=== PATIENT | female | born 1990 | race Hispanic/Latino ===

== ENCOUNTER 2018-06-05 01:00 | Emergency (ER) | payer BC, MEDICAID ==
[2018-06-05 02:28] LABS: Absolute Lymphocytes (CBC) 3.7 K/uL (0.7-4.9); Absolute Monocytes 0.6 K/uL (0.1-1.3); Absolute Neutrophil 7.1 K/uL (1.8-8.0); Basophils % 0.5 % (0-1.3); Eosinophils % 1.4 % (0-4.4); Lymphocytes % 31.8 % (15.3-44.8); MPV 8.9 fL (7.6-11.3)
[2018-06-05 03:13] LABS: BUN Blood Urea Nitrogen 12 mg/dL (7-18); Bicarbonate 23 mmol/L (21-32); Glucose Level 89 mg/dL (74-106); HCG, Quantitative 127436 mIU/mL (1-3); Potassium 3.7 mmol/L (3.5-5.1); Sodium Level 138 mmol/L (136-145)
--- NOTE | 2018-06-05 03:41 | ER ---
Nurse's Notes [facility] Name: Latisha Taylor Age: 28 yrs Sex: Female : 1990 Arrival Date: 06/05/2018 Time: 01:02 Bed 8 Private MD: Diagnosis: Threathened . 1st trimester ( Twins ) Presentation: 06/05 01:26 Presenting complaint: Patient states: Reports she started bleeding after having sex ea with her . Reports she is 10 weeks with twins and has been cramping all week. Transition of care: patient was not received from another setting of care. Onset of symptoms was June 05, 2018. Risk Assessment: Do you want to hurt yourself or someone else? Patient reports no desire to harm self or others. Initial Sepsis Screen: Does the patient meet any 2 criteria? No. Patient's initial sepsis screen is negative. Does the patient have a suspected source of infection? No. Patient's initial sepsis screen is negative. Care prior to arrival: None. 01:26 Method Of Arrival: Ambulatory ea 01:26 Acuity: JULIÁN 3 ea Triage Assessment: 01:30 General: Appears in no apparent distress. Behavior is calm, cooperative, appropriate ea for age. Pain: Complains of pain in suprapubic area Quality of pain is described as crampy. Neuro: Level of Consciousness is awake, alert, obeys commands, Oriented to person, place, time, situation. Cardiovascular: Patient's skin is warm and dry. Respiratory: Airway is patent Respiratory effort is even, unlabored, Respiratory pattern is regular, symmetrical. GI:. GI: Reports nausea. : Reports vaginal bleeding that is spotty. Derm: Skin is pink, warm \T\ dry. 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 - Social history:: Smoking status: Patient/guardian denies using tobacco. - Ebola Screening: : No symptoms or risks identified at this time. Screenin:31 Abuse screen: Denies threats or abuse. Nutritional screening: No deficits noted. ea Tuberculosis screening: No symptoms or risk factors identified. Fall Risk None identified. Assessment: 01:26 Obstetrical Assessment: General assessment: awake and alert, Rupture of membranes ea noted. Patient reports spotting. General: Appears in no apparent distress. Behavior is calm, cooperative, appropriate for age. Neuro: Level of Consciousness is awake, alert, obeys commands. Cardiovascular: Patient's skin is warm and dry. Respiratory: Airway is patent Respiratory effort is even, unlabored, Respiratory pattern is regular, symmetrical. Derm: Skin is pink, warm \T\ dry. 02:39 Reassessment: Patient and/or family updated on plan of care and expected duration. Pain ea level reassessed. Patient is alert, oriented x 3, equal unlabored respirations, skin warm/dry/pink. Awaiting on ultrasound. 03:47 Reassessment: Patient and/or family updated on plan of care and expected duration. Pain ea level reassessed. Patient is alert, oriented x 3, equal unlabored respirations, skin warm/dry/pink. Discharge instructions given to patient, verbalized the understanding of isntruction. Vital Signs: 01:29 BP 135 / 85; Pulse 73; Resp 18; Temp 98.2; Pulse Ox 99% on R/A; ea 02:41 BP 110 / 55; Pulse 59; Resp 18; Pulse Ox 98% on R/A; ea 03:50 BP 130 / 79; Pulse 60; Resp 18; Pulse Ox 99% ; ea ED Course: 01:02 Patient arrived in ED. am2 01:16 Erick Allen PA is PHCP. jr8 01:16 Rashad Hopper MD is Attending Physician. jr8 01:26 Ghislaine Devine, SALIMA is Primary Nurse. ea 01:26 Arm band placed on right wrist. Patient placed in an exam room, on a stretcher, on ea pulse oximetry. 01:27 Triage completed. ea 01:32 Patient has correct armband on for positive identification. Placed in gown. Bed in low ea position. Call light in reach. Side rails up X2. 01:35 Inserted saline lock: 20 gauge in right antecubital area, using aseptic technique. ea 03:41 Ultrasound completed. Patient tolerated well. Notified PSYCHIATRY ADULT PHYSICIAN/PA dr hopper. sg3 03:41 US Transvaginal Ob In Process Unspecified. EDMS 03:47 No provider procedures requiring assistance completed. IV discontinued, intact, ea bleeding controlled, No redness/swelling at site. Pressure dressing applied. Administered Medications: No medications were administered Point of Care Testing: Urine : 02:38 hCG Reading: Positive; ea Outcome: 03:40 Discharge ordered by . tj 03:49 Discharged to home ambulatory. ea 03:49 Condition: improved 03:49 Discharge instructions given to patient, Instructed on discharge instructions, follow up and referral plans. Demonstrated understanding of instructions, follow-up care. 03:51 Patient left the ED. ea Signatures: Dispatcher [employer] EDMS Rashad Hopper MD MD pkl Roszak, Josh, PA PA jr8 Bebe Acevedo am2 Ghislaine Devine RN RN Yuko Bazzi sg3
--- NOTE | 2018-06-05 03:41 | EDPHYS ---
Physician Documentation [facility] Name: Latisha Taylor Age: 28 yrs Sex: Female : 1990 Arrival Date: 06/05/2018 Time: 01:02 Bed 8 Private MD: ED Physician Rashad Orosco HPI: 06/05 01:30 This 28 yrs old Female presents to ER via Ambulatory with complaints of jr8 Vaginal Bleeding, + Preg <12wks. 01:30 The patient presents to the emergency department with vaginal bleeding, that is light, jr8 described as spotting. The estimated gestational age is 11 weeks. course: care: private OB physician, Leakage of Fluid: none appreciated, Ultrasound: the patient had an ultrasound, which was normal, Risk/complications: no obvious risks or complications are appreciated. Previous pregnancies: in previous pregnancies patient has had vaginal delivery, no complications. Associated signs and symptoms: The patient has no apparent associated signs or symptoms. The patient has not experienced similar symptoms in the past. The patient has not recently seen a physician. Had intercourse with tonight. Shortly after had mild bleeding. Patient bearing twins. Concerned for miscarriage . 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 - Social history:: Smoking status: Patient/guardian denies using tobacco. - Ebola Screening: : No symptoms or risks identified at this time. ROS: 01:30 Eyes: Negative for injury, pain, redness, and discharge, ENT: Negative for injury, jr8 pain, and discharge, Neck: Negative for injury, pain, and swelling, Cardiovascular: Negative for chest pain, palpitations, and edema, Respiratory: Negative for shortness of breath, cough, wheezing, and pleuritic chest pain, Abdomen/GI: Negative for abdominal pain, nausea, vomiting, diarrhea, and constipation, Back: Negative for injury and pain, MS/Extremity: Negative for injury and deformity, Skin: Negative for injury, rash, and discoloration, Neuro: Negative for headache, weakness, numbness, tingling, and seizure. 01:30 : Positive for vaginal bleeding. Exam: 01:30 Eyes: Pupils equal round and reactive to light, extra-ocular motions intact. Lids and jr8 lashes normal. Conjunctiva and sclera are non-icteric and not injected. Cornea within normal limits. Periorbital areas with no swelling, redness, or edema. ENT: Nares patent. No nasal discharge, no septal abnormalities noted. Tympanic membranes are normal and external auditory canals are clear. Oropharynx with no redness, swelling, or masses, exudates, or evidence of obstruction, uvula midline. Mucous membranes moist. Neck: Trachea midline, no thyromegaly or masses palpated, and no cervical lymphadenopathy. Supple, full range of motion without nuchal rigidity, or vertebral point tenderness. No Meningismus. Cardiovascular: Regular rate and rhythm with a normal S1 and S2. No gallops, murmurs, or rubs. Normal PMI, no JVD. No pulse deficits. Respiratory: Lungs have equal breath sounds bilaterally, clear to auscultation and percussion. No rales, rhonchi or wheezes noted. No increased work of breathing, no retractions or nasal flaring. Abdomen/GI: Soft, non-tender, with normal bowel sounds. No distension or tympany. No guarding or rebound. No evidence of tenderness throughout. Back: No spinal tenderness. No costovertebral tenderness. Full range of motion. Skin: Warm, dry with normal turgor. Normal color with no rashes, no lesions, and no evidence of cellulitis. MS/ Extremity: Pulses equal, no cyanosis. Neurovascular intact. Full, normal range of motion. Neuro: Awake and alert, GCS 15, oriented to person, place, time, and situation. Cranial nerves II-XII grossly intact. Motor strength 5/5 in all extremities. Sensory grossly intact. Cerebellar exam normal. Normal gait. Vital Signs: 01:29 BP 135 / 85; Pulse 73; Resp 18; Temp 98.2; Pulse Ox 99% on R/A; ea 02:41 BP 110 / 55; Pulse 59; Resp 18; Pulse Ox 98% on R/A; ea 03:50 BP 130 / 79; Pulse 60; Resp 18; Pulse Ox 99% ; ea MDM: 01:24 Patient medically screened. [facility] 03:39 Data reviewed: vital signs, nurses notes, lab test result(s), radiologic studies, pkl ultrasound. 06/05 01:24 Order name: Quantitative Hcg; Complete Time: 03:38 [facility] 06/05 01:24 Order name: Abo/rh Typing [facility] 06/05 01:24 Order name: Basic Metabolic Panel; Complete Time: 03:38 [facility] 06/05 01:24 Order name: CBC with Diff; Complete Time: 02:40 [facility] 06/05 01:24 Order name: Urine Dipstick--Ancillary (enter results) [facility] 06/05 01:24 Order name: Urine --Ancillary (enter results) [facility] 06/05 01:24 Order name: Urine Test (obtain specimen); Complete Time: 59 [facility] 06/05 01:24 Order name: IV Saline Lock; Complete Time: 59 [facility] 06/05 01:24 Order name: Labs collected and sent; Complete Time: 59 [facility] 06/05 01:24 Order name: NPO; Complete Time: :35 [facility] 06/05 01:24 Order name: Urine Dipstick-Ancillary (obtain specimen); Complete Time: [facility] 06/05 01:55 Order name: US Transvaginal Ob 8 Administered Medications: No medications were administered Point of Care Testing: Urine : 02:38 hCG Reading: Positive; ea Disposition: 03:39 Co-signature as Attending Physician, Rashad Orosco MD. pkl Disposition: 06/05/18 03:40 Discharged to Home. Impression: Threathened . 1st trimester ( Twins ). - Condition is Stable. - Medication Reconciliation Form, Thank You Letter, Antibiotic Education, Prescription Opioid Use form. - Follow up: Private Physician; When: 2 - 3 days; Reason: Re-evaluation by your physician. - Problem is new. - Symptoms have improved. Signatures: Dispatcher [employer] EDRashad Nice MD MD pkErick Salomon PA PA 8 Ghislaine Devine RN RN ea Corrections: (The following items were deleted from the chart) 03:51 03:40 06/05/2018 03:40 Discharged to Home. Impression: Threathened . 1st ea trimester ( Twins ). Condition is Stable. Forms are Medication Reconciliation Form, Thank You Letter, Antibiotic Education, Prescription Opioid Use. Follow up: Private Physician; When: 2 - 3 days; Reason: Re-evaluation by your physician. Problem is new. Symptoms have improved. pkl
[2018-06-05 06:23] LABS: Urine Blood 1+ (NEG); Urine Glucose NEGATIVE (NEG); Urine Protein NEGATIVE (NEG); Urine Specific Gravity >1.030 (1.005-1.030); Urine pH 5.5 (5.0-7.0)
--- NOTE | 2018-06-05 08:42 | RAD REPORT ---
EXAM DESCRIPTION: US - Transvaginal OB - 06/05/2018 3:41 am CLINICAL HISTORY: Dyspareunia, abdominal cramping, vaginal bleeding Preliminary findings provided the time of the study. COMPARISON: None. FINDINGS: Twin is present. Two separate gestational sacs are identifiable. No intrauterine hematoma or mass. Each gestational sac is normal in appearance. No myometrial mass. No left ovarian or adnexal abnormality. Right ovary was not visualized. The right adnexal was clear. No blood or flui d in the cul de sac. Twin A crown-rump length measurement corresponds to 10 week 5 day age. Heart rate was 160-166 BPM. No gross anatomic abnormality seen at this early age. Twin B measured 11 weeks 4 days. Heart rate was 160-171 BPM. No gross anatomic abnormality at this ea rly age. IMPRESSION: Diamniotic, dichorionic twin gestation. Each gestational sac normal in configuration. No hematoma or mass within the uterus. Twin a measures 10 weeks 5 days with normal heart rate. Twin B measures 11 weeks 4 days with normal h eart rate. Anatomic assessment is very limited at this 10-11 week age. No gross anatomic abnormality seen. Normal amniotic fluid volume.
== END 2018-06-05 03:51 | disposition home or self-care (01) ==
LOC: ER 01:00
DX: O20.0 Threatened abortion (principal); O30.001 Twin pregnancy, unspecified number of placenta and unspecified number of amniotic sacs, first trimester; Z3A.11 11 weeks gestation of pregnancy
CPT/HCPCS: 36415; 76817; 80048; 81003; 81025; 84702; 85025; 86900; 86901; 99284